=== PATIENT | male | born 1945 | race Caucasian/White ===

== ENCOUNTER 2018-10-14 15:26 | Emergency (ER) | payer MEDICARE, BC ==
[~2018-10-14] VITALS: Ht 172.7 cm; Wt 99.3 kg
[~2018-10-14 15:26] MED LIST: ADULT LOW DOSE81 MG PO; ALBUTEROL INH IH; APAP500 PO; B12INJ PO; BENICAR 5 MG5 M1; BENICAR HCT 201 EACH PO; BENICAR20 MG PO; CALCIUM; CALCIUM 600 +1 EAC5 PO; CALCIUM PO; COUMADIN 1MG TAB1 M1 PO; COUMADIN 5 MG TA5 M1 PO; COUMADIN PO; CYCLOBENZAPRINE5 MG PO; DUONEB 2.5-0.5 M3 ML INH; ENABLEX 7.5 MG7.5 M1 PO; EYE DROPS; FLOMAX0.4 MG PO; GABAPENTIN300 MG PO; GLUCOSAMINE &1 EACH PO; HYDROCHLOROTH12.5 M2 PO; IMDUR 30 MG TAB30 M1 PO; LANSOPRAZOLE30 MG PO; LATANOPROST2.5 ML OPHTHALMIC; LUMIGAN2.5 ML OP; MEDROL DOSPAK21 TA1 PO; MUCINEX TA600 MG/TA2 PO; NITROGLYCERIN0.4 MG SUBLING; NORCO 5-325 TA1 EACH PO; NORVASC5 MG PO; OXYBUTYNIN 5 MG5 M2 PO; PLAVIX 75 MG TA75 MG PO; PRAVACHOL40 MG PO; PROBIOTIC1 EAC1 PO; PROTONIX40 M1 PO; SINGULAIR 10 MG10 M1 PO; SYMBICORT; SYMBICORT IH; SYMBICORT160 MCG/4. INH; Symbicort; TESSALON PERLE100 MG PO; TRAMADOL 50 MG50 MG PO; XALATAN2.5 ML OP; XALATAN2.5 ML OPHTHALMIC; ZPAK PO; [UNRECOGNIZED DRUG - OTHER] PO
[2018-10-14 16:08] LABS: PROTIME 20.9 Seconds (9.20-11.50)
[2018-10-14 16:33] VITALS: BP 134/81
== END 2018-10-14 16:34 | disposition home or self-care (01) ==
LOC: M.ERS 15:26
PROVIDERS: Emergency Medicine
DX: S01.512A Laceration without foreign body of oral cavity, initial encounter (principal); K21.9 Gastro-esophageal reflux disease without esophagitis; J44.9 Chronic obstructive pulmonary disease, unspecified; I48.91 Unspecified atrial fibrillation; E78.00 Pure hypercholesterolemia, unspecified; Z86.73 Personal history of transient ischemic attack (TIA), and cerebral infarction without residual deficits; Z88.5 Allergy status to narcotic agent; Z88.8 Allergy status to other drugs, medicaments and biological substances; X58.XXXA Exposure to other specified factors, initial encounter; Y93.89 Activity, other specified; Y92.89 Other specified places as the place of occurrence of the external cause; Y99.8 Other external cause status